=== PATIENT | male | born 1970 | race Caucasian/White ===

== ENCOUNTER 2024-12-24 02:24 | Emergency (ER) | payer BC, OTHER ==
[2024-12-24] MEDS ORDERED: NA CHLORIDE 0.9% 1,000 ML ONE (02:33)
[2024-12-24] MEDS ORDERED: NITROGLYCERIN 0.4 MG/TAB SL ONE (02:33)
[2024-12-24] MEDS ORDERED: ONDANSETRON 4 MG/2 ML VIAL ONE (02:33)
[2024-12-24] MEDS ORDERED: ASPIRIN 81 MG CHEWABLE TABLET ONE (02:33)
[2024-12-24] MEDS ORDERED: FENTANYL CITR 100 MCG/2 ML ONE ×2 (02:34→03:00)
[2024-12-24 02:39] LABS: Absolute Lymphocytes (CBC) 5.8 K/uL (0.7-4.9); Hematocrit 50.2 % (39.6-49.0); Hemoglobin 16.7 g/dL (13.6-17.9); MCH 27.6 pg (27.0-35.0); MCHC 33.3 g/dL (32.0-36.0); MCV 82.7 fL (80-100); MPV 10.1 fL (7.6-11.3); Nucleated RBC Absolute Count 0.0 (0-0); Nucleated Red Blood Cells % 0.1 % (0-0); RBC Red Blood Cell Count 6.07 M/uL (4.33-5.43); White Blood Count 16.30 thou/uL (4.3-10.9)
[2024-12-24] MEDS ORDERED: HEPARIN 5000 UNIT/ML 1 ML VIAL ONE (02:41)
[2024-12-24] MEDS ORDERED: TENECTEPLASE 50 MG/10 ML VIAL IV ONE (02:41)
[2024-12-24] MEDS ORDERED: HEPARIN/D5W 25,000 UNIT/500 ML BAG IV ONE (02:41)
[2024-12-24 02:45] LABS: PT Prothrombin Time 11.1 SECONDS (10-13.0); Protime INR 0.98
[2024-12-24] MEDS ORDERED: CLOPIDOGREL 75 MG TABLET ONE (02:54)
[2024-12-24 02:57] LABS: ALT/SGPT 48 U/L (16-61); AST/SGOT 29 U/L (15-37); Albumin 3.7 g/dL (3.4-5.0); Albumin/Globulin Ratio 0.9 (1.1-1.8); Alkaline Phosphatase 84 U/L (45-117); Anion Gap 13.1 mEq/L (5.0-15.0); BUN Blood Urea Nitrogen 23 mg/dL (7-18); Globulin 4.0 g/dL (2.3-3.5); Glucose Level 219 mg/dL (74-106); Magnesium 2.3 mg/dL (1.6-2.4); NT PRO-BNP 48 pg/mL (<125); Potassium 3.1 mEq/L (3.5-5.1)
--- NOTE | 2024-12-24 02:59 | ER ---
Nurse's Notes [facility] Name: Yair Gonzales Age: 54 yrs Sex: Male : 1970 Arrival Date: 12/24/2024 Time: 02:24 Bed 3 Private MD: Diagnosis: STEMI, acute [place], chest pain Presentation: 12/24 02:25 Chief complaint: Patient states: chest pain that radiated to the back that started 30 cp4 minutes prior to arrival. 02:25 Method Of Arrival: Wheelchair cp4 02:25 Coronavirus screen: Vaccine status: Patient reports being unvaccinated. Client denies cp4 travel out of the [place] in the last 14 days. At this time, the client does not indicate any symptoms associated with coronavirus-19. Ebola Screen: Patient negative for fever greater than or equal to 101.5 degrees Fahrenheit, and additional compatible Ebola Virus Disease symptoms Patient denies exposure to infectious person. Patient denies travel to an Ebola-affected area in the 21 days before illness onset. No symptoms or risks identified at this time. Initial Sepsis Screen: Does the patient meet any 2 criteria? No. Patient's initial sepsis screen is negative. Does the patient have a suspected source of infection? No. Patient's initial sepsis screen is negative. Risk Assessment: Do you want to hurt yourself or someone else? Patient reports no desire to harm self or others. Onset of symptoms was December 24, 2024 at 01:55. 02:25 Acuity: ARLETTE 2 cp4 Triage Assessment: 02:25 General: Appears distressed, uncomfortable, Behavior is cooperative, appropriate for cp4 age, anxious. Pain: Complains of pain in chest Pain radiates to back Pain at worst was 10 out of 10 on a pain scale. Quality of pain is described as heavy, pressure. EENT: No signs and/or symptoms were reported regarding the EENT system. Neuro: Level of Consciousness is awake, alert, obeys commands, Oriented to person, place, time, situation. Cardiovascular: Patient's skin is warm and dry. Rhythm is sinus rhythm STEMI. Respiratory: Airway is patent Trachea midline Respiratory effort is even, unlabored. GI: No signs and/or symptoms were reported involving the gastrointestinal system. : No signs and/or symptoms were reported regarding the genitourinary system. Derm: No signs and/or symptoms reported regarding the dermatologic system. Musculoskeletal: No signs and/or symptoms reported regarding the musculoskeletal system. Historical: - Allergies: 02:25 No Known Allergies; cp4 - Immunization history:: Adult Immunizations up to date. - Infectious Disease History:: Denies. - Social history:: Smoking status: Patient denies any tobacco usage or history of. Screenin:25 [facility] ED Fall Risk Assessment (Adult) History of falling in the last 3 months, cp4 including since admission No falls in past 3 months (0 pts) Confusion or Disorientation No (0 pts) Intoxicated or Sedated No (0 pts) Impaired Gait No (0 pts) Mobility Assist Device Used No (0 pt) Altered Elimination No (0 pt) Score/Fall Risk Level 0 - 2 = Low Risk Oriented to surroundings, Maintained a safe environment, Assessed \T\ reinforced patient's understanding of fall precautions, Hourly rounding (assess needs \T\ fall precautionary measures) done. Abuse screen: Denies threats or abuse. Denies injuries from another. Nutritional screening: No deficits noted. Tuberculosis screening: No symptoms or risk factors identified. Never had TB. 02:25 [facility] ED Fall Risk Assessment (Adult) History of falling in the last 3 months, vc1 including since admission No falls in past 3 months (0 pts) Confusion or Disorientation No (0 pts) Intoxicated or Sedated No (0 pts) Impaired Gait No (0 pts) Mobility Assist Device Used No (0 pt) Altered Elimination No (0 pt) Score/Fall Risk Level 0 - 2 = Low Risk Oriented to surroundings, Maintained a safe environment, Educated pt \T\ family on fall prevention, incl call for assistance when getting out of bed, Assessed \T\ reinforced patient's understanding of fall precautions, Hourly rounding (assess needs \T\ fall precautionary measures) done. Abuse screen: Denies threats or abuse. Nutritional screening: No deficits noted. Tuberculosis screening: Assessment: 02:25 Pain: Pain began 30 min ago. cp4 Vital Signs: 02:25 BP 148 / 106; Pulse 77; Resp 22; Temp 97.9; Pulse Ox 100% ; Weight 113.4 kg; Height 5 vc1 ft. 10 in. ; Pain 10/10; 02:31 Weight 113.4 kg; cp4 03:00 BP 119 / 73; Pulse 72; Resp 16; Pulse Ox 99% on 2 lpm NC; vc1 02:25 Body Mass Index 35.87 (113.40 kg, 177.8 cm) vc1 02:25 Pain Scale: Adult vc1 ED Course: 02:25 Arm band placed on right wrist. Patient placed in waiting room. cp4 02:25 Placed in gown. Bed in low position. Call light in reach. Side rails up X2. Provided cp4 Education on: STEMI. Client placed on continuous cardiac and pulse oximetry monitoring. NIBP monitoring applied. captain cannery tender on. Pulse ox on. NIBP on. 02:25 No provider procedures requiring assistance completed. cp4 02:26 Inserted saline lock: 18 gauge in left forearm, using aseptic technique. Blood vc1 collected. Flushed with 10 mL NS. Oxygen administration via nasal cannula \T\ 2L/min. 02:28 Patient arrived in ED. vk 02:29 Miranda Andrew MD is Attending Physician. sp3 02:30 Inserted saline lock: 20 gauge in right forearm, using aseptic technique. vc1 02:35 initiated transfer with [facility] spoke with Ashley, Patient was accepted to [facility] to Dr. Melendez \T\[id number] accepting admin Ashley Dumas \T\[id number] Patient will go to manager cath lab upon arrival will have room assignment after per admin ashley, instructed by DENIA Ramirez to call report to transfer center. 02:35 initiated transfer with EMS spoke with Shane Patient accepted. ETA 10 mins. vk 02:48 XRAY Chest (1 view) In Process Unspecified. EDMS 03:01 Triage completed. cp4 03:03 Myrtle Juan RN is Primary Nurse. vc1 03:18 faxed documents to [facility] facility \T\[id number] to [phone] to Sarah. vk 03:21 Patient transferred, IV remains in place. cp4 Administered Medications: 02:38 Drug: Aspirin PO Chewable Tablet 324 mg PO once; 81 mg tablets x 4 Route: PO; cp4 03:07 Follow up: Response: No adverse reaction vc1 02:38 Drug: Nitroglycerin Sublingual 0.4 mg Sublingual once Route: Sublingual; cp4 02:57 Follow up: Response: No adverse reaction cp4 02:38 Drug: fentaNYL (PF) IVP 50 mcg IVP once Route: IVP; Site: left forearm; cp4 02:57 Follow up: Response: No adverse reaction cp4 02:38 Drug: Ondansetron IVP 4 mg IVP once; over 2 minutes Route: IVP; Site: left forearm; cp4 02:57 Follow up: Response: No adverse reaction cp4 02:45 Drug: Heparin ([place]-Bolus with thrombolytic) - HEParin IVP 60 units/kg IVP once; Max 4000 cp4 units {Co-Signature: linda (Zheng Kamara RN).} Route: IVP; Site: right forearm; 02:59 Follow up: Response: No adverse reaction cp4 02:50 Drug: Tenecteplase IV (Administer 10 ml NS flush BEFORE and AFTER tenecteplase) 50 mg cp4 IV at calculated rate once {Co-Signature: linda (Zheng Kamara RN).} Route: IV; Rate: calculated rate; Site: right forearm; 02:59 Follow up: Response: No adverse reaction cp4 02:59 Follow up: IV Status: Completed infusion cp4 02:53 Drug: Heparin ([place] Drip) 12 units/kg/hr - ([place] [address] units, D5W IV 500 ml) IV at cp4 calculated rate Per protocol; Max initial rate 1000 units/hr {Co-Signature: linda (Zheng Kamara RN).} Route: IV; Rate: calculated rate; Site: right forearm; 03:07 Follow up: IV Status: Infusion continued upon transfer vc1 02:57 Drug: Clopidogrel PO 300 mg PO once Route: PO; cp4 02:59 Follow up: Response: No adverse reaction cp4 03:08 Drug: fentaNYL (PF) IVP 50 mcg IVP once Route: IVP; Site: right forearm; vc1 03:08 Follow up: Response: Medication administered at discharge. vc1 Medication: 02:25 VIS not applicable for this client. cp4 Outcome: 02:59 ER care complete, transfer ordered by sp3 03:21 Transferred by ground EMS to [facility], Transfer form completed. cp4 X-rays sent w/ patient. 03:21 Condition: stable 03:21 Instructed on the need for transfer, 03:22 Patient left the ED. cp4 Signatures: Dispatcher [employer] EDMS Miranda Andrew MD MD sp3 Myrtle Juan RN RN vc1 Nanda Araujo cp4 Maribell Granados Brad RN bm8 Corrections: (The following items were deleted from the chart) 02:58 02:57 Tenecteplase IV (Administer 10 ml NS flush BEFORE and AFTER tenecteplase) 50 mg cp4 IV at calculated rate in right forearm cp4
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
[2024-12-24 03:04] LABS: Bilirubin Indirect, Calculated 0.1 mg/dL (0.2-0.8)
[2024-12-24 03:05] LABS: Troponin High Sensitivity 3945.8 pg/mL (<58.9)
[2024-12-24 03:47] VITALS: TEMP 97.9
[2024-12-24 03:48] VITALS: BP 119/73; O2SAT 99
--- NOTE | 2024-12-24 06:32 | RAD REPORT ---
CLINICAL HISTORY: Chest pain. COMPARISON: None. TECHNIQUE: XR CHEST 1 VIEW 12/24/2024 2:32 AM CDT FINDINGS: Cardiac silhouette is normal in size. Lungs are clear without consolidation, atelectasis, mass or nancy ma. There is no pleural effusion. There is no pneumothorax. There are no acute osseous findings. IMPRESSION: Clear lungs. Electronically signed by: Del Lilly MD 12/24/2024 03:41 AM CDT RP Due to temporary technical issues with the PACS/[employer] reporting system, reports are being puneet d by the in-house radiologist without review as a courtesy to ensure prompt reporting the interpreting radiologist is fully responsible for the content of the report Transcribed Date/Time: 12/24/2024 6:32 AM
== END 2024-12-24 03:22 | disposition short-term general hospital (02) ==
LOC: ER 02:24
DX: I21.3 ST elevation (STEMI) myocardial infarction of unspecified site (principal); E78.5 Hyperlipidemia, unspecified; E11.9 Type 2 diabetes mellitus without complications
CPT/HCPCS: 92977; 93005; 85025; 80048; 36415; 83735; 85610; 80076; 84484; 83880; 71045; 99285; J1644; J3101; J3010 ×2; J2405; J7030